=== PATIENT | female | born 1965 | race Caucasian/White ===

== ENCOUNTER → 2018-11-04 | Day surgery (SDC) | payer BC ==
[~2018-11-04] MED LIST: Buffered Lidocaine 1% SYRIN* 1 ML/SYRINGE INTRADERM ONE; Bupivacaine 0.5%* 50 ML MDV VIAL ONE; Ibuprofen TAB* 200 MG ONE; Lactated Ringers 1000 ML Bag* 1,000 ML IV SCH; Lidocaine 1% INJ* 10 MG/ML 30 ML SDV ONE; Lidocaine 2% PF * 5 ML VIAL ONE; Midazolam* 1 MG/ML 2 ML VIAL (2 MG) ONE; Ondansetron INJ* 2 MG/ML VIAL ONE; Propofol* 10 MG/ML 20 ML BTL ONE; ceFAZolin 2 GM in NS PREMIX(*) 2 GM/100 ML BAG IVPB ONE; fentaNYL* 50 MCG/ML 2 ML VIAL (100 MCG VIAL) ONE
--- NOTE | 2018-11-04 09:29 | BRIEFOPN ---
Brief Operative/Procedure Note - Operation Details Pre-Op Diagnosis: left breast cancer Post-Op Diagnosis: left breast cancer Procedures: placement of left internal jugular 8 F power port Surgeon(s)/Proceduralists: Sveta East Anesthesia: local Findings: catheter in cavoatrial junction Specimen(s)/Culture(s) Description: None Complications: None
[2018-11-04 09:35] VITALS: BP 159/88
--- NOTE | 2018-11-04 15:32 | OP ---
DATE OF OPERATION: 11/04/18 - [facility] DATE OF : 63 SERVICE: General Surgery. SURGEON: Sveta East MD ANESTHESIOLOGIST: Dr. Zane Porras. ANESTHESIA: Local/MAC. PRE-OP DIAGNOSIS: Left breast cancer. POST-OP DIAGNOSIS: Left breast cancer. OPERATIVE PROCEDURE: Placement of 8-Burkinan PowerPort in the left internal jugular vein. ESTIMATED BLOOD LOSS: Minimal, approximately 10 cc. INDICATIONS FOR PROCEDURE: Ms. 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 She underwent a left mastectomy and a sentinel lymph node biopsy and now requires adjuvant chemotherapy. She therefore gave informed consent for placement of a PowerPort. She understood that the risks included, but were not limited to bleeding, infection, injury to nearby structures, pneumothorax, and possible infection of the port and possible revision of the port. She understood all these things and wished to proceed. DESCRIPTION OF PROCEDURE: The patient was brought back to the operating room and placed on the operating table in a supine position. Sequential compression devices were placed on the bilateral lower extremities for DVT prophylaxis. Antibiotics with Ancef were administered prior to incision. The patient underwent local and MAC anesthesia. Her left neck and right neck were prepped and draped in normal sterile fashion, and prior to beginning the procedure, a time-out was performed verifying the patient's name, MR number, and the procedure to be performed. With the patient in a slight Trendelenburg position , an ultrasound was placed over her left internal jugular vein. It was noted to be rather small, but under guidance, the internal jugular vein was entered and dark venous blood was aspirated easily through the finder needle. Next, a guidewire was placed through the finder needle which moved very easily back and forth, and under fluoroscopy, there was confirmation that the wire was within the internal jugular vein and descending through the superior vena cava. Once this was done, the needle was removed and the wire was secured to the drape so that it would not be displaced. Attention was then turned towards formation of the subcutaneous port for the port to be placed. She had had a prior left- sided port for chemotherapy for her previous right breast cancer. She strongly wished to have her port placed on the left side again given that she had had wound healing complications from her right mastectomy incision secondary to radiation. Therefore, an incision was placed through the scar on her left chest wall at the site of her previous port. The skin was divided down to the subcutaneous tissue. Local anesthesia consisting of 0.25% Marcaine was infiltrated into the incision and towards the subcutaneous tract that would be made for tunneling of the catheter. Next, an inferior subcutaneous flap was made large enough for easy placement of the port. Next, attention was turned towards tunneling the catheter towards the wire in the neck. The location where the wire was coming out of the skin of the neck was enlarged with a knife and the 8-Burkinan catheter was tunneled subcutaneously towards this exit site and pulled through. Once this was done, the introducer and sheath were then placed over the wire with a Seldinger fashion, and then the dilator and the wire were then removed. Fluoroscopy was used again to confirm that the peel- away sheath was in place, and then with great care, the 8-Burkinan catheter was then placed through the peel-away sheath and advanced until it entered the cavoatrial junction. During its advancement, it was monitored under fluoroscopy one time to confirm that it was being directed appropriately. After this was done, the peel-away sheath was completely removed, and another fluoroscopy picture was taken to confirm that the catheter was indeed in the right atrium and heading towards the ventricle. It was therefore pulled back to approximately 24 cm at the skin, and at that point, it was noted to be in an excellent position in the cavoatrial junction. The catheter was then secured to the port and the port was then anchored down to the pectoralis fascia using 3 -0 Vicryl sutures. A De Jesus needle was then placed into the port and saline was easily flushed and aspirated of blood. Once this was confirmed, attention was turned towards closure. The subdermal layer of the incision at the port site was closed using interrupted 3-0 Vicryl sutures and the skin was closed using a running 4-0 Monocryl suture. The skin arianna at the neck was also closed using an interrupted 4-0 Monocryl suture. Sterile dressing was then placed. A final x-ray with the fluoroscopy was taken to confirm that the port was still in place and the tip at the cavoatrial junction. The butterfly needle was then attached because the patient was going for chemotherapy that day. and all of the ports were then flushed easily and aspirated and finally flushed with heparinized saline. A sterile dressing was then placed. The patient was woken up and then she was taken to the PACU in stable condition. At the end of the case, all the counts were correct except for the count of the knife blades which was corrected by the technicians and the circulating nurse. The final fluoroscopy x-ray also did not show any extra blades on the field. PACU chest x -ray was performed and showed that there was no evidence of pneumothorax and that the catheter was in place in the SVC. [id number]/CPS #: [id number] MTDD
== END | disposition home or self-care (01) ==
LOC: OR 05:58
PROVIDERS: ATTEND Surgery
DX: C50.912 Malignant neoplasm of unspecified site of left female breast (principal); G47.33 Obstructive sleep apnea (adult) (pediatric); R73.01 Impaired fasting glucose; E87.6 Hypokalemia; I10 Essential (primary) hypertension; M19.90 Unspecified osteoarthritis, unspecified site
CPT/HCPCS: 71045; A9270-GY; C1788; J0690; J1642; J2250; J2405; J2704; J3010; J3490